=== PATIENT | male | born 1955 | race Caucasian/White ===

== ENCOUNTER 2016-12-01 16:16 | Observation (INO) | payer OTHER ==
[~2016-12-01] VITALS: Ht 180.3 cm; Wt 102.1 kg
[2016-12-01 17:17] LABS: HEMOGLOBIN 13.5 gm/dl (14.0-17.5); RED BLOOD COUNT 4.45 M/UL (4.20-5.50); WHITE BLOOD COUNT 20.9 K/UL (4.5-11.0)
[2016-12-01] MEDS ORDERED: BUSPIRONE HCL15 MG PO (18:22)
[2016-12-01] MEDS ORDERED: LEVOTHYROXINE137 MCG PO (18:23)
[2016-12-01] MEDS ORDERED: NORVASC 5 MG TAB5 MG PO (18:23)
[2016-12-01] MEDS ORDERED: VITAMIN D5000 UNIT PO (18:24)
[2016-12-01] MEDS ORDERED: NITROSTAT0.4 MG SL (18:25)
[2016-12-01] MEDS ORDERED: AMBIEN5 MG PO (18:26)
--- NOTE | 2016-12-01 21:52 | NUR ---
REPORT CALLED TO MELANIE LUNA RN AT [facility]. FAMILY INSTRUCTED PT TO BE RECEIVED AT [facility] A 8TH FLOOR TOWER 2 BED 222. EMTALA SIGNED BY PTS ALEXEY LAMONT. DR. PENNY ON FLOOR/BEDSIDE DURING TRANSFERE.
== END 2016-12-01 21:00 ==
LOC: ER1 16:16 → CCU 18:43
PROVIDERS: Internal Medicine; ADMIT Internal Medicine Cardiovascular Disease
PROC: 027034Z Dilation of Coronary Artery, One Artery with Drug-eluting Intraluminal Device, Percutaneous Approach (ICD-10-PCS; principal; 2016-12-01)
PROC: 02C03ZZ Extirpation of Matter from Coronary Artery, One Artery, Percutaneous Approach (ICD-10-PCS; principal; 2016-12-01)
PROC: 5A1935Z Respiratory Ventilation, Less than 24 Consecutive Hours (ICD-10-PCS; 2016-12-01)
DX: I21.19 ST elevation (STEMI) myocardial infarction involving other coronary artery of inferior wall (principal); I49.01 Ventricular fibrillation; I46.2 Cardiac arrest due to underlying cardiac condition; N17.9 Acute kidney failure, unspecified; E87.2 Acidosis; I49.3 Ventricular premature depolarization; I25.2 Old myocardial infarction; I25.10 Atherosclerotic heart disease of native coronary artery without angina pectoris; G40.901 Epilepsy, unspecified, not intractable, with status epilepticus; I10 Essential (primary) hypertension; E78.5 Hyperlipidemia, unspecified; E66.9 Obesity, unspecified; E03.9 Hypothyroidism, unspecified; Z91.041 Radiographic dye allergy status; Z79.899 Other long term (current) drug therapy; Z68.32 Body mass index [BMI] 32.0-32.9, adult; Z87.891 Personal history of nicotine dependence; Z88.5 Allergy status to narcotic agent; Z85.831 Personal history of malignant neoplasm of soft tissue; Z82.49 Family history of ischemic heart disease and other diseases of the circulatory system
CPT/HCPCS: 71010; 80053; 82550; 82553; 82803; 82962; 83605; 84484; 85025; 85347; 85610; 85730; 93005; 94002; 99291; C1725; C1757; C1769; C1874; C1887; C9600; G0378; J0461; J0583; J1200; J1265; J1327; J1644; J1720; J1953; J2001; J2060; J2370; J7030; J7040; J7050; Q9965

== ENCOUNTER 2020-09-15 10:34 | Emergency (ER) | payer MEDICARE, OTHER ==
[~2020-09-15 10:34] MED LIST: AMBIEN5 MG PO; ATORVASTATIN CA40 MG PO; AUGMENTIN 875-1 EACH PO; BUSPIRONE HCL15 MG PO; DOXYCYCLINE HY100 M2 PO; ECOTRIN81 MG PO; IPRATROPIUM BRO15 ML; KLONOPIN TAB 00.5 MG PO; LEVOTHYROXINE137 MCG PO; NITROSTAT0.4 MG SL; NORVASC 5 MG TAB5 MG PO; PLAVIX 75 MG TA75 MG PO; PROSCAR5 MG PO; PROTONIX40 MG PO; SYNTHROID125 MCG PO; VALPROIC ACID250 MG PO; VITAMIN D5000 UNIT PO; ZOLOFT25 MG PO; ZOLPIDEM TART12.5 MG PO
[2020-09-15 12:48] LABS: HEMOGLOBIN 13.4 gm/dl (14.0-17.5); RED BLOOD COUNT 4.25 M/UL (4.20-5.50); WHITE BLOOD COUNT 12.2 K/UL (4.5-11.0)
[2020-09-15 14:01] LABS: BUN/CREATININE RATIO 28 (0-10)
[2020-09-15] MEDS ORDERED: ZITHROMAX200 MG/5 M GT (16:56)
[2020-09-15] MEDS ORDERED: CEFDINIR250 MG/5 M GT (16:56)
== END 2020-09-15 17:19 | disposition home or self-care (01) ==
LOC: ER1 10:34
PROVIDERS: Emergency Medicine
DX: J18.9 Pneumonia, unspecified organism (principal); R91.8 Other nonspecific abnormal finding of lung field; I51.9 Heart disease, unspecified; Z79.82 Long term (current) use of aspirin; Z79.02 Long term (current) use of antithrombotics/antiplatelets; Z87.891 Personal history of nicotine dependence; Z88.5 Allergy status to narcotic agent; Z91.041 Radiographic dye allergy status; Z20.822 Contact with and (suspected) exposure to COVID-19
CPT/HCPCS: 70490; 71250; 80053; 82272; 83605; 85025; 85610; 85730; 86850; 86900; 86901; 96365; 99284; J0696; U0002

== ENCOUNTER → 2021-07-06 | Day surgery (SDC) | payer MEDICARE, OTHER ==
[~2021-07-06] MED LIST changes: +CEFDINIR250 MG/5 M GT; +ZITHROMAX200 MG/5 M GT
== END | disposition home or self-care (01) ==
LOC: OR 06:19
DX: D12.6 Benign neoplasm of colon, unspecified (principal); K57.30 Diverticulosis of large intestine without perforation or abscess without bleeding; R94.8 Abnormal results of function studies of other organs and systems; I25.10 Atherosclerotic heart disease of native coronary artery without angina pectoris; I25.2 Old myocardial infarction; R05.3 Chronic cough; E03.9 Hypothyroidism, unspecified; F41.9 Anxiety disorder, unspecified; F32.A Depression, unspecified; K21.9 Gastro-esophageal reflux disease without esophagitis; E78.00 Pure hypercholesterolemia, unspecified; I10 Essential (primary) hypertension; E78.5 Hyperlipidemia, unspecified; Z87.891 Personal history of nicotine dependence; Z88.8 Allergy status to other drugs, medicaments and biological substances; Z79.82 Long term (current) use of aspirin; Z79.899 Other long term (current) drug therapy; Z85.89 Personal history of malignant neoplasm of other organs and systems; Z86.010 Personal history of colon polyps; Z95.818 Presence of other cardiac implants and grafts; Z72.89 Other problems related to lifestyle
CPT/HCPCS: J2704; J7120

== ENCOUNTER 2021-07-13 09:43 | Emergency (ER) | payer MEDICARE, OTHER ==
[2021-07-13] MEDS ORDERED: BACLOFEN10 MG PO (13:38)
== END 2021-07-13 13:12 | disposition home or self-care (01) ==
LOC: ER1 09:43
DX: M25.552 Pain in left hip (principal); M79.605 Pain in left leg; I11.9 Hypertensive heart disease without heart failure; I25.2 Old myocardial infarction; Z79.02 Long term (current) use of antithrombotics/antiplatelets; Z88.5 Allergy status to narcotic agent; Z91.041 Radiographic dye allergy status
CPT/HCPCS: 73522; 73552; 99283

== ENCOUNTER → 2021-09-02 | Outpatient (CLI) | payer MEDICARE, OTHER ==
[~2021-09-02] MED LIST changes: +BACLOFEN10 MG PO
== END ==
LOC: EXRD 10:05
DX: R09.89 Other specified symptoms and signs involving the circulatory and respiratory systems (principal); R91.8 Other nonspecific abnormal finding of lung field
CPT/HCPCS: 71046

== ENCOUNTER → 2021-09-13 | Outpatient (CLI) | payer MEDICARE, OTHER ==
[~2021-09-13] MED LIST changes: +ARICEPT10 MG GT; +ECOTRIN81 MG GT; -ECOTRIN81 MG PO; +EUTHYROX137 MCG GT; +JEVITY 1.5 CA1500 ML GT; +LIPITOR40 MG GT; +MUCUS ER600 MG GT; +PLAVIX75 MG GT; +PROSCAR5 MG GT; +VALPROIC ACID250 MG GT; +XYZAL5 MG GT; +ZOLOFT100 MG GT
[2021-09-13 11:19] LABS: RED BLOOD COUNT 4.61 M/UL (4.20-5.50); WHITE BLOOD COUNT 8.5 K/UL (4.5-11.0)
[2021-09-13 12:07] LABS: BUN/CREATININE RATIO 30 (0-10)
== END ==
LOC: OPSV2 10:00
PROVIDERS: Anesthesiology
DX: Z01.818 Encounter for other preprocedural examination (principal)
CPT/HCPCS: 80048; 85025; 93005

== ENCOUNTER 2021-09-21 06:30 | Inpatient (IN) | payer MEDICARE, OTHER ==
[~2021-09-21] VITALS: Ht 180.3 cm; Wt 78.5 kg
[2021-09-22 06:38] LABS: HEMOGLOBIN 12.7 gm/dl (14.0-17.5); RED BLOOD COUNT 4.25 M/UL (4.20-5.50); WHITE BLOOD COUNT 15.1 K/UL (4.5-11.0)
--- NOTE | 2021-09-22 12:38 | NUR ---
JEVITY 1.5 STARTED AT 10ML/HR PER DR NGUYỄN TELEPHONE ORDER.
[2021-09-23 10:13] LABS: HEMOGLOBIN 12.1 gm/dl (14.0-17.5); RED BLOOD COUNT 4.15 M/UL (4.20-5.50); WHITE BLOOD COUNT 18.1 K/UL (4.5-11.0)
[2021-09-23 14:27] LABS: BUN/CREATININE RATIO 20 (0-10)
--- NOTE | 2021-09-23 23:42 | NUR ---
APPROX 20:00- MD Baptiste routinely visits patient. During this time, patient is noted to be febrile with a temp of 100.0, O2 sat ranging from 85-92 with the inability to maintain O2 sat. gives orders for lactic acid and blood cultures, LR 500 bolus, starting dose of Zosyn, UA, and MRSA swab. APPROX 22:00- MD Baptiste calls this RN, gives order for ABG. APPROX 22:30- This RN calls MD Baptiste r/t ABG results. gives order for HFNC, ABG approximately 1-2h after placed on HFNC, cxr now, and to transfer pt to PCU.
[2021-09-24 10:06] LABS: HEMOGLOBIN 10.6 gm/dl (14.0-17.5); RED BLOOD COUNT 3.6 M/UL (4.20-5.50)
[2021-09-24 10:42] LABS: BUN/CREATININE RATIO 23 (0-10)
[2021-09-25 02:44] LABS: HEMOGLOBIN 10.4 gm/dl (14.0-17.5); RED BLOOD COUNT 3.53 M/UL (4.20-5.50); WHITE BLOOD COUNT 9.7 K/UL (4.5-11.0)
[2021-09-25 02:57] LABS: BUN/CREATININE RATIO 28 (0-10)
[2021-09-26 04:23] LABS: HEMOGLOBIN 9.8 gm/dl (14.0-17.5); RED BLOOD COUNT 3.33 M/UL (4.20-5.50); WHITE BLOOD COUNT 11.6 K/UL (4.5-11.0)
[2021-09-26 04:27] LABS: BUN/CREATININE RATIO 22 (0-10)
--- NOTE | 2021-09-26 13:48 | NUR ---
PATIENT FAMILY STATES MD NGUYỄN WOULD ADD IV FLUIDS TO THE PATIENT MAR. NO ORDER NOTED. CALLED MD, NO ANSWER
[2021-09-27 02:54] LABS: HEMOGLOBIN 9.4 gm/dl (14.0-17.5); RED BLOOD COUNT 3.29 M/UL (4.20-5.50); WHITE BLOOD COUNT 12.4 K/UL (4.5-11.0)
[2021-09-27 03:44] LABS: BUN/CREATININE RATIO 19 (0-10)
[2021-09-28 03:02] LABS: HEMOGLOBIN 8.9 gm/dl (14.0-17.5); RED BLOOD COUNT 3.11 M/UL (4.20-5.50); WHITE BLOOD COUNT 11.2 K/UL (4.5-11.0)
[2021-09-28 03:22] LABS: BUN/CREATININE RATIO 16 (0-10)
[2021-09-28 12:16] LABS: ORGANISM ID Not indicated. (.); SPECIMEN SOURCE Urine (.); STREPTOCOCCUS PNEUMONIAE AG Negative (Negative)
[2021-09-29 15:11] LABS: RED BLOOD COUNT 3.48 M/UL (4.20-5.50); WHITE BLOOD COUNT 14.3 K/UL (4.5-11.0)
[2021-09-29 15:21] LABS: BUN/CREATININE RATIO 31 (0-10)
--- NOTE | 2021-09-30 12:59 | NUR ---
PATIENT O2 SAT ON ROOM AIR IS 80%
== END 2021-09-30 17:50 | disposition home health service (06) | DRG 981 ==
LOC: OR 06:30 → MED SURG 4 13:40 → OR 14:01 → PROG CARE 09-23 23:29
PROVIDERS: Internal Medicine; Internal Medicine Critical Care Medicine; Physician Assistant Medical; ADMIT Surgery
PROC: 0DTF0ZZ Resection of Right Large Intestine, Open Approach (ICD-10-PCS; 2021-09-21)
PROC: 5A0955A Assistance with Respiratory Ventilation, Greater than 96 Consecutive Hours, High Flow/Velocity Cannula (ICD-10-PCS; 2021-09-23)
PROC: 0B938ZZ Drainage of Right Main Bronchus, Via Natural or Artificial Opening Endoscopic (ICD-10-PCS; 2021-09-23)
PROC: 0B9K8ZZ Drainage of Right Lung, Via Natural or Artificial Opening Endoscopic (ICD-10-PCS; 2021-09-23)
PROC: 0B948ZZ Drainage of Right Upper Lobe Bronchus, Via Natural or Artificial Opening Endoscopic (ICD-10-PCS; 2021-09-23)
PROC: B24BZZZ Ultrasonography of Heart with Aorta (ICD-10-PCS; 2021-09-27)
PROC: 0DH67UZ Insertion of Feeding Device into Stomach, Via Natural or Artificial Opening (ICD-10-PCS; principal; 2021-09-30)
PROC: 3E0G76Z Introduction of Nutritional Substance into Upper GI, Via Natural or Artificial Opening (ICD-10-PCS; 2021-09-30)
DX: D18.1 Lymphangioma, any site (principal); J69.0 Pneumonitis due to inhalation of food and vomit; Z51.5 Encounter for palliative care; Z66 Do not resuscitate; Z20.822 Contact with and (suspected) exposure to COVID-19; J15.0 Pneumonia due to Klebsiella pneumoniae; J80 Acute respiratory distress syndrome; J98.11 Atelectasis; R64 Cachexia; E44.0 Moderate protein-calorie malnutrition; F41.9 Anxiety disorder, unspecified; I25.10 Atherosclerotic heart disease of native coronary artery without angina pectoris; H61.23 Impacted cerumen, bilateral; N40.0 Benign prostatic hyperplasia without lower urinary tract symptoms; F32.A Depression, unspecified; E78.5 Hyperlipidemia, unspecified; I10 Essential (primary) hypertension; E03.9 Hypothyroidism, unspecified; J31.0 Chronic rhinitis; G47.00 Insomnia, unspecified; E55.9 Vitamin D deficiency, unspecified; I73.9 Peripheral vascular disease, unspecified; E87.6 Hypokalemia; K21.9 Gastro-esophageal reflux disease without esophagitis; R62.7 Adult failure to thrive; R53.81 Other malaise; I08.3 Combined rheumatic disorders of mitral, aortic and tricuspid valves; K76.0 Fatty (change of) liver, not elsewhere classified; E78.00 Pure hypercholesterolemia, unspecified; Z98.890 Other specified postprocedural states; Z85.9 Personal history of malignant neoplasm, unspecified; Z85.819 Personal history of malignant neoplasm of unspecified site of lip, oral cavity, and pharynx; Z87.442 Personal history of urinary calculi; I25.2 Old myocardial infarction; Z98.62 Peripheral vascular angioplasty status; Z87.440 Personal history of urinary (tract) infections; Z88.8 Allergy status to other drugs, medicaments and biological substances; Z91.041 Radiographic dye allergy status; Z87.19 Personal history of other diseases of the digestive system; Z87.01 Personal history of pneumonia (recurrent); Z86.69 Personal history of other diseases of the nervous system and sense organs; Z85.828 Personal history of other malignant neoplasm of skin; Z86.79 Personal history of other diseases of the circulatory system; Z86.010 Personal history of colon polyps; Z90.49 Acquired absence of other specified parts of digestive tract; K52.9 Noninfective gastroenteritis and colitis, unspecified; Z95.5 Presence of coronary angioplasty implant and graft; Z93.1 Gastrostomy status; Z82.61 Family history of arthritis; Z83.3 Family history of diabetes mellitus; Z81.1 Family history of alcohol abuse and dependence; Z83.42 Family history of familial hypercholesterolemia; Z82.49 Family history of ischemic heart disease and other diseases of the circulatory system; Z82.3 Family history of stroke; Z87.820 Personal history of traumatic brain injury; Z79.01 Long term (current) use of anticoagulants; Z79.82 Long term (current) use of aspirin; Z79.899 Other long term (current) drug therapy; Z68.24 Body mass index [BMI] 24.0-24.9, adult
CPT/HCPCS: ECHO; 36415; 36600; 71045; 71275; 80048; 80053; 80202; 81001; 82803; 82962; 83605; 83735; 83880; 84132; 85025; 85027; 87015; 87040; 87070; 87077; 87081; 87116; 87186; 87205; 87278; 87899; 93005; 93306; 94640; 94664; 94668; 94760; 97110-GP-CQ; 97116-GP-CQ; 97162; 97164; 97530; C9113; J0690; J1100; J1650; J1940; J2001; J2185; J2250; J2270; J2405; J2543; J2704; J2710; J2920; J3010; J3370; J3480; J7030; J7040; J7060; J7070; J7120; Q9967; U0002; U0003

== ENCOUNTER 2021-11-18 18:10 | Emergency (ER) | payer MEDICARE, OTHER ==
[2021-11-18 19:20] LABS: HEMOGLOBIN 13.7 gm/dl (14.0-17.5); RED BLOOD COUNT 4.73 M/UL (4.20-5.50); WHITE BLOOD COUNT 20.5 K/UL (4.5-11.0)
[2021-11-18 19:49] LABS: BUN/CREATININE RATIO 48 (0-10)
[2021-11-18] MEDS ORDERED: IPRAT-ALBUT 0.5-3 ML INH (22:17)
[2021-11-18] MEDS ORDERED: PREDNISONE 20 M20 MG PO (22:17)
== END 2021-11-18 22:26 | disposition home or self-care (01) ==
LOC: ER1 18:10 → CDU 21:33 → ER1 22:26
PROVIDERS: Physician Assistant
DX: S01.01XA Laceration without foreign body of scalp, initial encounter (principal); J40 Bronchitis, not specified as acute or chronic; Z20.822 Contact with and (suspected) exposure to COVID-19; I48.91 Unspecified atrial fibrillation; E03.9 Hypothyroidism, unspecified; Z91.041 Radiographic dye allergy status; E86.0 Dehydration; R09.02 Hypoxemia; W19.XXXA Unspecified fall, initial encounter
CPT/HCPCS: 0240U; 36600; 70450; 71045; 72125; 80053; 81001; 82550; 82553; 82803; 83605; 84439; 84443; 84484; 85025; 85379; 87040; 93005; 99285